=== PATIENT | female | born 1995 | race Caucasian/White ===

== ENCOUNTER → 2021-06-08 17:41 | Outpatient (CLI) | payer OTHER, SELFPAY ==
[2021-06-10 17:36] LABS: Calprotectin, Stool 38 ug/g (0-120)
[2021-06-12 12:04] LABS: H. Pylori Antigen Stool Negative (Negative)
== END ==
PROVIDERS: Referring Provider Internal Medicine Gastroenterology; Visit Provider Internal Medicine Gastroenterology
DX: R19.7 Diarrhea, unspecified (principal)
CPT/HCPCS: 83993; 87177; 87329; 87338

== ENCOUNTER → 2025-05-08 10:29 | Outpatient (CLI) | payer OTHER, SELFPAY ==
[2025-05-08 11:33] LABS: Add Manual Diff / Slide Review NO; Hematocrit 40.5 % (36-46); Hemoglobin 14.2 g/dL (12.0-16.0); Lymphocytes Absolute Auto 1600 /uL (1100-4500); Mean Corpuscular HGB Conc 35.1 % (30-36); Mean Corpuscular Hemoglobin 31.7 PG (26-34); Mean Corpuscular Volume 90.2 fL (80-100); Platelet Count 244 X10^3/uL (150-400)
[2025-05-08 11:40] LABS: Hemoglobin A1C% w Est Avg Glu 4.9 % (4.0-6.0)
[2025-05-08 11:46] LABS: HEMOLYSIS < 15 (0-50); Iron 151 ug/dL (37-170)
[2025-05-08 11:51] LABS: Alanine Aminotransferase 7 IU/L (<35); Albumin 4.3 g/dL (3.5-5.0); Albumin Globulin Ratio 1.7 (1.0-2.8); Alkaline Phosphatase 42 U/L (38-126); Blood Urea Nitrogen 11 mg/dL (7-17); Calcium 9.0 mg/dL (8.4-10.2); Carbon Dioxide 25 mmol/L (22-32); Chloride 104 mmol/L (98-107); Estimated Glomerular Filt Rate > 60 mL/min (>60); Globulin 2.5 g/dL (1.7-4.1); Glucose 81 mg/dL (70-99); HEMOLYSIS < 15 (0-50); Potassium 4.4 mmol/L (3.4-5.1); Sodium 137 mmol/L (137-145); Total Protein 6.8 g/dL (6.3-8.2)
[2025-05-08 11:59] LABS: Percent Iron Saturation 47 % (15-50); Total Iron Binding Capacity 318 ug/dL (265-497); Transferrin 267 mg/dL (206-381)
[2025-05-08 12:03] LABS: Vitamin D 25 Hydroxy (D3) 31.3 ng/mL (30.0-100.0)
[2025-05-08 12:05] LABS: T4 Total Thyroxine 7.64 ug/dL (5.5-11.0); T7 (Free Thyroxine Index) 2.26 (1.65-3.89); Triiodothryronine T3 Uptake 29.6 % (23.5-40.5)
[2025-05-08 12:18] LABS: Thyroid Stimulating Hormone 1.66 uIU/mL (0.47-4.68)
[2025-05-08 12:54] LABS: Folate 7.8 ng/mL (2.76-20.0); Vitamin B12 314 pg/mL (239-931)
== END ==
PROVIDERS: Referring Provider Nurse Practitioner Psychiatric/Mental Health; Visit Provider Nurse Practitioner Psychiatric/Mental Health
DX: F25.0 Schizoaffective disorder, bipolar type (principal)
CPT/HCPCS: 36415; 80053; 82306; 82607; 82746; 83036; 83540; 83550; 84436; 84443; 84479; 85025; 85651; 86140